=== PATIENT | male | born 1990 | race African-American/Black ===

== ENCOUNTER 2019-06-13 08:08 | Emergency (ER) | payer SELFPAY ==
--- NOTE | 2019-06-13 08:27 | EDM.PDOC ---
ED HPI GENERAL MEDICAL PROBLEM - General Chief Complaint: General Stated Complaint: TOOTH PAIN Time Seen by Provider: 06/13/19 08:22 - History of Present Illness INITIAL COMMENTS - FREE TEXT/NARRATIVE: HISTORY AND PHYSICAL: History of present illness: Patient 28-year-old black male with no significant past medical history presents with concern of dental pain assisted left upper molar is yet to secure dental follow-up he denies allergies denies fever chills or other complaints Review of systems: As per history of present illness and below otherwise all systems reviewed and negative. Past medical history: As per history of present illness and as reviewed below otherwise noncontributory. Surgical history: As per history of present illness and as reviewed below otherwise noncontributory. Social history: No reported history of drug or alcohol abuse. Family history: As per history of present illness and as reviewed below otherwise noncontributory. Physical exam: HEENT: Atraumatic, normocephalic, pupils reactive, negative for conjunctival pallor or scleral icterus, mucous membranes moist, throat clear, neck supple, nontender, trachea midline. Generally poor dentition with multiple dental caries noted tenderness and gingival edema in the region of the left upper molar Lungs: Clear to auscultation, breath sounds equal bilaterally, chest nontender. Heart: S1S2, regular, negative for clicks, rubs, or JVD. Abdomen: Soft, nondistended, nontender. Negative for masses or hepatosplenomegaly. Negative for costovertebral tenderness. Pelvis: Stable nontender. Genitourinary: Deferred. Rectal: Deferred. Extremities: Atraumatic, negative for cords or calf pain. Neurovascular unremarkable. Neuro: Awake, alert, oriented. Cranial nerves II through XII unremarkable. Cerebellum unremarkable. Motor and sensory unremarkable throughout. Exam nonfocal. Diagnostics: None Therapeutics: None Impression: #1 dentalgia #2 dental caries #3 rule out dental abscess Definitive disposition and diagnosis as appropriate pending reevaluation and review of above. ED ROS GENERAL - Review of Systems Review Of Systems: ROS reveals no pertinent complaints other than HPI. ED EXAM, GENERAL - Physical Exam Exam: See Below (See dictation) Departure - Departure Time of Disposition: 08:26 Disposition: Home, Self-Care 01 Condition: Good Clinical Impression: Dentalgia, Dental caries, Dental abscess - Discharge Information Referrals: PCP,Unknown [Primary Care Provider] - Additional Instructions: The following information is given to patients seen in the emergency department who are being discharged to home. This information is to outline your options for follow-up care. We provide all patients seen in our emergency department with a follow-up referral. The need for follow-up, as well as the timing and circumstances, are variable depending upon the specifics of your emergency department visit. If you don't have a primary care physician on staff, we will provide you with a referral. We always advise you to contact your personal physician following an emergency department visit to inform them of the circumstance of the visit and for follow-up with them and/or the need for any referrals to a consulting specialist. The emergency department will also refer you to a specialist when appropriate. This referral assures that you have the opportunity for followup care with a specialist. All of these measure are taken in an effort to provide you with optimal care, which includes your followup. Under all circumstances we always encourage you to contact your private physician who remains a resource for coordinating your care. When calling for followup care, please make the office aware that this follow-up is from your recent emergency room visit. If for any reason you are refused follow-up, please contact the [facility] emergency department at and asked to speak to the emergency department charge nurse. Pen-Vee K as prescribed follow-up with dentist Motrin/Tylenol as directed and return as needed as discussed
== END 2019-06-13 08:42 | disposition home or self-care (01) ==
LOC: MW.ED 08:08
DX: K04.7 Periapical abscess without sinus (principal); K02.9 Dental caries, unspecified
CPT/HCPCS: 99282

== ENCOUNTER 2019-07-15 23:53 | Emergency (ER) | payer SELFPAY ==
[2019-07-16] MEDS ORDERED: Ondansetron 4 MG/2 ML SDV IVPUSH ONE (00:25)
[2019-07-16] MEDS ORDERED: Sodium Chloride 0.9% 10 ML Syringe FLUSH PRN (00:25)
[2019-07-16] MEDS ORDERED: Ketorolac 30 MG/ML SDV IVPUSH ONE (00:25)
[2019-07-16] MEDS ORDERED: Sodium Chloride 0.9% 2.5 ML Syringe FLUSH PRN (00:25)
[2019-07-16] MEDS ORDERED: Sodium Chloride 0.9% 1,000 ML IV ONE (00:25)
--- NOTE | 2019-07-16 00:29 | EDM.PDOC ---
ED HPI GENERAL MEDICAL PROBLEM - General Chief Complaint: ENT Problem Stated Complaint: SORE THROAT Time Seen by Provider: 07/16/19 00:20 - History of Present Illness INITIAL COMMENTS - FREE TEXT/NARRATIVE: HISTORY AND PHYSICAL: History of present illness: The patient is a 28-year-old male with no stated history who presents with 4 days of a sore throat and tactile fever slight cough and body aches. He has no ear pain no abdominal pain but has old nauseated without vomiting. He's had no diarrhea. He says that he took [id number] Aleve for the pain and took some of his friends leftover penicillin but it did not improve so he came in here. He says that he is having more difficulty swallowing because of the discomfort and his by mouth intake has fallen off. He has no history of recent strep throat or tonsillitis. He says he feels the pain is more on the right side than on the left side of his neck when he swallows. He has no sinus pain or tenderness. Review of systems: As per history of present illness and below otherwise all systems reviewed and negative. Past medical history: As per history of present illness and as reviewed below otherwise noncontributory. Surgical history: As per history of present illness and as reviewed below otherwise noncontributory. Social history: No reported history of drug or alcohol abuse. Family history: As per history of present illness and as reviewed below otherwise noncontributory. Physical exam: General: Well-developed well-nourished man who is nontoxic and has slight hoarseness to his voice and thickening of voice but it is not muffled nor is he breathless. The patient is spitting in the room but can swallow his saliva. Vital signs are noted by me HEENT: Atraumatic, normocephalic, pupils reactive, negative for conjunctival pallor or scleral icterus, mucous membranes moist, bilateral tonsillar areas are enlarged and reddened right is greater than left uvula is not grossly shifted, there is anterior cervical adenopathy which is tender right greater than left but no thyromegaly and no nuchal rigidity neck supple, nontender, trachea midline. Lungs: Clear to auscultation, breath sounds equal bilaterally, chest nontender. No wheezing or stridor Heart: S1S2, regular rhythm and tachycardic rate on my evaluation but no overt murmurs Abdomen: Soft, nondistended, nontender. Negative for masses or hepatosplenomegaly. Negative for costovertebral tenderness. Pelvis: Deferred Genitourinary: Deferred. Rectal: Deferred. Extremities: Atraumatic, negative for cords or calf pain. Neurovascular unremarkable. Neuro: Awake, alert, oriented. Cranial nerves II through XII unremarkable. Cerebellum unremarkable. Motor and sensory unremarkable throughout. Exam nonfocal. Diagnostics: CBC CMP rapid strep CT scan of the soft tissue neck Therapeutics: IV fluids Toradol Zofran Decadron Rocephin morphine Tylenol viscous lido 0206: Case was discussed with Dr. Sykes the ENT specialist at [facility]. He feels that with that CAT scan and the patient's presenting symptoms he would like the patient to calm to their hospital to be admitted or IV antibiotics over the next 12 hours and to see whether or not this declares itself and needs drainage. I discussed the case with Dr. Webb in the ER at [facility] at 2:12 AM and he also accepts the patient for transfer. I discussed this care plan with the patient and he is currently trying to decide if he wants to go by private vehicle or by EMS. His airway is stable and he was able to swallow water and Tylenol so he is in no jeopardy to go by private vehicle. If he is unable to find a ride I will arrange for EMS transfer. 0222: Patient says he is unable to get a ride so we will arrange for EMS transfer. Impression: Strep tonsillitis with early right peritonsillar abscess versus phlegmon Definitive disposition and diagnosis as appropriate pending reevaluation and review of above. throat Pain Score (Numeric/FACES): 10 - Related Data Allergies Allergy/AdvReac Type Severity Reaction Status Date / Time No Known Allergies Allergy Verified 07/16/19 00:05 Home Meds: Home Meds . [No Known Home Meds] 06/13/19 [History] Past Medical History - Past Health History Medical/Surgical History: Denies Medical/Surgical History HEENT History: Reports: None Cardiovascular History: Reports: None Respiratory History: Reports: None Gastrointestinal History: Reports: None Genitourinary History: Reports: None Musculoskeletal History: Reports: None Neurological History: Reports: None Psychiatric History: Reports: None Endocrine/Metabolic History: Reports: None Insulin Pump Model and Animal Caretaker Supervisor: None Hematologic History: Reports: None Immunologic History: Reports: None Oncologic (Cancer) History: Reports: None Dermatologic History: Reports: None - Infectious Disease History Infectious Disease History: Reports: None - Past Surgical History Head Surgeries/Procedures: Reports: None Social & Family History - Family History Family Medical History: Noncontributory - Tobacco Use Smoking Status *Q: Current Every Day Smoker Years of Tobacco use: 1 Packs/Tins Daily: 0.2 - Caffeine Use Caffeine Use: Reports: None - Recreational Drug Use Recreational Drug Use: No ED ROS GENERAL - Review of Systems Review Of Systems: ROS reveals no pertinent complaints other than HPI. ED EXAM, GENERAL - Physical Exam Exam: See Below (See dictation) Course - Vital Signs Last Recorded V/S: Last Vital Signs Temp 38.7 C H 07/16/19 01:49 Pulse 105 H 07/16/19 01:22 Resp 18 07/16/19 01:22 BP 133/72 07/16/19 01:22 Pulse Ox 95 07/16/19 01:22 - Orders/Labs/Meds Orders: Active Orders 24 hr Category Date Time Status Lidocaine 2% [Xylocaine 2% Viscous] Med 07/16/19 02:20 Once 15 ml PO ONETIME ONE Sodium Chloride 0.9% [Saline Flush] Med 07/16/19 00:25 Active 10 ml FLUSH ASDIRECTED PRN Sodium Chloride 0.9% [Saline Flush] Med 07/16/19 00:25 Active 2.5 ml FLUSH ASDIRECTED PRN Saline Lock Insert [OM.PC] Stat Oth 07/16/19 00:24 Ordered Medication Orders Sodium Chloride (Saline Flush) 10 ml FLUSH ASDIRECTED PRN PRN Reason: Keep Vein Open Sodium Chloride (Saline Flush) 2.5 ml FLUSH ASDIRECTED PRN PRN Reason: Keep Vein Open Labs: Laboratory Tests 07/16/19 07/16/19 Range/Units 00:40 00:40 WBC 20.51 H (4.0-11.0) K/uL RBC 5.02 (4.50-5.90) M/uL Hgb 15.2 (13.0-17.0) g/dL Hct 45.2 (38.0-50.0) % MCV 90.0 (80.0-98.0) fL MCH 30.3 (27.0-32.0) pg MCHC 33.6 (31.0-37.0) g/dL RDW Std Deviation 40.7 (28.0-62.0) fl RDW Coeff of Cassie 13 (11.0-15.0) % Plt Count 164 (150-400) K/uL MPV 10.70 (7.40-12.00) fL Add Manual Diff YES Neutrophils % (Manual) 74 (48.0-80.0) % Lymphocytes % (Manual) 12 L (16.0-40.0) % Monocytes % (Manual) 13 (0.0-15.0) % Eosinophils % (Manual) 1 (0.0-7.0) % Absolute Seg Neuts 15.2 H (1.4-5.7) Lymphocytes # (Manual) 2.5 H (0.6-2.4) Monocytes # (Manual) 2.7 H (0.0-0.8) Eosinophils # (Manual) 0.2 (0.0-0.7) Sodium 136 (136-148) mmol/L Potassium 4.0 (3.5-5.1) mmol/L Chloride 100 (98-107) mmol/L Carbon Dioxide 26.9 (21.0-32.0) mmol/L BUN 10 (7.0-18.0) mg/dL Creatinine 1.3 (0.8-1.3) mg/dL Est Cr Clr Drug Dosing TNP Estimated GFR (MDRD) > 60.0 ml/min Glucose 102 (74-106) mg/dL Calcium 9.4 (8.5-10.1) mg/dL Total Bilirubin 1.3 H (0.2-1.0) mg/dL AST 14 L (15-37) IU/L ALT 17 (14-63) IU/L Alkaline Phosphatase 90 (46-116) U/L Total Protein 8.5 H (6.4-8.2) g/dL Albumin 3.6 (3.4-5.0) g/dL Globulin 4.9 H (2.6-4.0) g/dL Albumin/Globulin Ratio 0.7 L (0.9-1.6) Meds: Medications Generic Name Dose Route Start Last Admin Trade Name Freq PRN Reason Stop Dose Admin Sodium Chloride 10 ml 07/16/19 00:25 Saline Flush FLUSH ASDIRECTED PRN Keep Vein Open Sodium Chloride 2.5 ml 07/16/19 00:25 Saline Flush FLUSH ASDIRECTED PRN Keep Vein Open Discontinued Medications Generic Name Dose Route Start Last Admin Trade Name Cydney PRN Reason Stop Dose Admin Acetaminophen 1,000 mg 07/16/19 01:27 07/16/19 01:49 Tylenol Extra Strength PO 07/16/19 01:28 1,000 mg ONETIME ONE Administration Dexamethasone 10 mg 07/16/19 02:03 Dexamethasone IVPUSH 07/16/19 02:04 ONETIME ONE Sodium Chloride 1,000 mls @ 999 mls/hr 07/16/19 00:25 07/16/19 00:43 Normal Saline IV 07/16/19 01:25 999 mls/hr STAT ONE Administration Ceftriaxone Sodium/Dextrose 2 50 mls @ 100 mls/hr 07/16/19 01:08 07/16/19 01: 20 gm/ Premix IV 07/16/19 01:37 100 mls/hr ONETIME ONE Administration Iopamidol 80 ml 07/16/19 01:37 07/16/19 01:39 Isovue Multipack-370 (76%) IVPUSH 07/16/19 01:38 80 ml ONETIME STA Administration Ketorolac Tromethamine 30 mg 07/16/19 00:25 07/16/19 00:43 Toradol IVPUSH 07/16/19 00:26 30 mg ONETIME ONE Administration Morphine Sulfate 4 mg 07/16/19 01:11 07/16/19 01:16 Morphine IVPUSH 07/16/19 01:12 4 mg ONETIME ONE Administration Ondansetron HCl 4 mg 07/16/19 00:25 07/16/19 00:44 Zofran IVPUSH 07/16/19 00:26 4 mg ONETIME ONE Administration Departure - Departure Time of Disposition: 02:22 Disposition: DC/Tfer to Acute Hospital 02 Condition: Good Clinical Impression: Strep tonsillitis, Phlegmon, Peritonsillar abscess - Discharge Information Referrals: PCP,None [Primary Care Provider] - Forms: ED Department Discharge - My Orders Last 24 Hours: My Active Orders 07/16/19 00:24 Saline Lock Insert [OM.PC] Stat 07/16/19 00:25 Sodium Chloride 0.9% [Saline Flush] 10 ml FLUSH ASDIRECTED PRN Sodium Chloride 0.9% [Saline Flush] 2.5 ml FLUSH ASDIRECTED PRN 07/16/19 02:20 Lidocaine 2% [Xylocaine 2% Viscous] 15 ml PO ONETIME ONE - Assessment/Plan Last 24 Hours: My Active Orders 07/16/19 00:24 Saline Lock Insert [OM.PC] Stat 07/16/19 00:25 Sodium Chloride 0.9% [Saline Flush] 10 ml FLUSH ASDIRECTED PRN Sodium Chloride 0.9% [Saline Flush] 2.5 ml FLUSH ASDIRECTED PRN 07/16/19 02:20 Lidocaine 2% [Xylocaine 2% Viscous] 15 ml PO ONETIME ONE
[2019-07-16] MEDS ORDERED: cefTRIAXone 2 GM in Premix Bag 1 BAG IV ONE (01:08)
[2019-07-16 01:09] LABS: BLOOD UREA NITROGEN,BUN 10 mg/dL (7.0-18.0); CARBON DIOXIDE,CO2 26.9 mmol/L (21.0-32.0); CHLORIDE,CL 100 mmol/L (98-107); GLUCOSE RANDOM 102 mg/dL (74-106); SODIUM,NA 136 mmol/L (136-148)
[2019-07-16] MEDS ORDERED: Morphine 2 MG/ML Syringe IVPUSH ONE (01:11)
[2019-07-16] MEDS ORDERED: Acetaminophen 500 MG Tab PO ONE (01:27)
[2019-07-16] MEDS ORDERED: Iopamidol 755 MG/ML 500 ML Multipack Bottle IVPUSH STA (01:37)
--- NOTE | 2019-07-16 01:58 | CT ---
INDICATION: Foot pain right greater than left, pain with swallowing TECHNIQUE: CT soft tissue of the neck was acquired with IV contrast. 80 cc Isovue 370 COMPARISON: None FINDINGS: Skull base: Unremarkable. Pharynx: 2.0 centimeter x 2.0 centimeter right peritonsillar phlegmon versus abscess. Larynx and trachea: Unremarkable. Salivary glands: Unremarkable. Thyroid gland: Unremarkable. Vessels: Unremarkable for age. Bones: Unremarkable for age. Misc: No mass or lymphadenopathy. Lung apices: Unremarkable. IMPRESSION: 2.0 centimeter x 2.0 centimeter right peritonsillar phlegmon versus abscess. Dictated by Black Capone MD @ 07/16/2019 1:57:18 AM Please note that all CT scans at this facility use dose modulation, iterative reconstruction, and/or weight-based dosing when appropriate to reduce radiation dose to as low as reasonably achievable. Dictated by: Black Capone MD @ 07/16/2019 01:57:34 (Electronically Signed)
[2019-07-16] MEDS ORDERED: Dexamethasone 10 MG/ML SDV IVPUSH ONE (02:03)
[2019-07-16] MEDS ORDERED: Lidocaine 2% Viscous Solution 15 ML Cup PO ONE (02:20)
[2019-07-16] MEDS ORDERED: Sodium Chloride 0.9% 1,000 ML IV SCH (02:30)
== END 2019-07-16 03:10 ==
LOC: MW.ED 23:53
DX: J03.00 Acute streptococcal tonsillitis, unspecified (principal); F17.210 Nicotine dependence, cigarettes, uncomplicated
CPT/HCPCS: 36415; 70491; 80053; 85025; 87880; 96361; 96365; 96375; 99284; A9270; J0696; J1100; J1885; J2270; J2405; J7040; Q9967